=== PATIENT | female | born 1995 | race Caucasian/White ===

== ENCOUNTER 2022-07-23 16:22 | Outpatient (REF) | payer BC, SELFPAY ==
[2022-07-23 17:21] LABS: Influenza A PCR NEGATIVE (Negative); Influenza B PCR NEGATIVE (Negative); Resp Syncy Virus RNA Qual PCR NEGATIVE (Negative); SARS COV2 PCR INHOUSE NEGATIVE (Negative)
== END 2022-07-23 16:23 | disposition home or self-care (01) ==
LOC: HO.LNP 16:22
PROVIDERS: Visit Provider Physician Assistant
DX: Z20.822 Contact with and (suspected) exposure to COVID-19 (principal); B34.9 Viral infection, unspecified
CPT/HCPCS: 0241U

== ENCOUNTER 2023-09-25 22:33 | Emergency (ER) | payer BC, SELFPAY ==
--- NOTE | ~2023-09-25 | XR_ITS ---
EXAMINATION: XR CHEST CLINICAL INFORMATION: Chest pain. COMPARISON: None available. TECHNIQUE: Frontal view of the chest was obtained. FINDINGS: No significant abnormality is noted involving the heart, lungs, mediastinum, bony thorax or soft tissues. XR/XR chest 1V IMPRESSION: Unremarkable examination.
--- NOTE | 2023-09-25 22:34 | ECG_ITS ---
Test Reason : CHEST PAIN Blood Pressure : / mmHG Vent. Rate : 121 BPM Atrial Rate : 121 BPM P-R Int : 128 ms QRS Dur : 074 ms QT Int : 296 ms P-R-T Axes : 061 061 038 degrees QTc Int : 420 ms Sinus tachycardia Nonspecific T wave abnormality Abnormal ECG No previous ECGs available Referred By: Generic ED Physician Electronically Signed By:LEIF WADDELL MD
[2023-09-25 22:44] VITALS: BP 144/88; PULSE 98; RESP 16; TEMP 36.9; O2SAT 100; BMI 30.9
--- NOTE | 2023-09-25 22:59 | MHC.EDTECH ---
PATIENT EKG TAKEN AND WAS READ BY PROVIDER ,BLOOD DRAWN AND SENT TO LAB .
[2023-09-25 23:01] LABS: MANUAL DIFF FLAG NO
[2023-09-25 23:02] LABS: Basophils Absolute Auto 0.1 X10*3/uL (0.0-0.2); Basophils Percent Auto 0.5 % (0-2); Eosinophils Absolute Auto 0.1 X10*3/uL (0.0-0.4); Hematocrit 38.3 % (37.0-47.0); Hemoglobin 13.1 g/dl (12.0-16.0); Imm Gran Abs Auto 0.02 X10*3/uL (0.00-0.03); Imm Gran Pct Auto 0.2 % (0.0-0.4); Lymphocytes Absolute Auto 2.6 X10*3/uL (1.2-4.9); Lymphocytes Percent Auto 25.3 % (20-40); Mean Corpuscular HGB Conc 34.2 g/dl (31.0-35.0); Mean Corpuscular Hemoglobin 28.7 pg (27.0-33.0); Mean Platelet Volume 9.6 fL (9.4-12.3); Monocytes Absolute Auto 0.6 X10*3/uL (0.1-1.2); Monocytes Percent Auto 5.9 % (2-11); Neutrophils Absolute Auto 6.8 x10*3/uL (2.0-8.3); Neutrophils Percent Auto 67.1 % (45-73); Platelet Count 284 X10*3/uL (160-400); Red Blood Count 4.56 X10*6/uL (4.20-5.50); Red Cell Distribution Width 12.1 % (11.0-16.0); White Blood Count 10.1 X10*3/uL (4.8-10.8)
[2023-09-25 23:16] LABS: Alanine Aminotransferase 10 U/L (0-31); Albumin Level 4.1 g/dL (3.5-5.0); Alkaline Phosphatase 52 U/L (39-117); Anion Gap 14 (12-20); Aspartate Amino Transferase 18 U/L (5-31); Bilirubin Total 0.2 mg/dL (0.0-1.0); Blood Urea Nitrogen 8 mg/dL (9-16); Calcium 9.2 mg/dL (8.4-10.2); Carbon Dioxide 23 mmol/L (22-29); Chloride 107 mmol/L (96-108); Creatinine Clr Calc Pharmacy 86.5; Estimated Glomerular Filt Rate > 60; Glucose Random 119 mg/dL (60-115); Potassium 4.1 mmol/L (3.3-5.1); Sodium 140 mmol/L (135-145); Total Protein 6.8 g/dL (6.5-8.0)
[2023-09-25 23:23] LABS: Troponin-I High Sensitivity < 2.7 ng/L (<3.5-17.0)
[2023-09-26] VITALS (7 sets, daily range): BP systolic 117–126; BP diastolic 61–77; PULSE 70–81; RESP 14–20; TEMP 36.7; O2SAT 97
--- NOTE | 2023-09-26 02:51 | ED_ITS ---
HPI - Chest Pain General Chief Complaint: Chest Pain Stated Complaint: Chest pain, heart rate jumping Time Seen by Provider: 09/26/23 02:40 Source: patient Mode of arrival: ambulatory Limitations: no limitations History of Present Illness HPI narrative: Patient otherwise healthy been having episodes of palpitation to 3 times a week for last 2 months getting more frequent now been to Hospital last week when similar episode by the time patient has reached hospital heart rate was normal today while at home and resting patient had palpitation episode checked pulse ox was 150 regular felt slight dizziness tried Valsalva maneuver and had cold water without much relief on arrival patient has sinus rhythm with heart rate of 121 patient's usually get tachycardia while standing but today this happened while she was lying down no anxiety Related Data Home Medications ?Medication ?Instructions ?Recorded ?Confirmed No Known Home Meds 07/23/22 07/23/22 Allergies Allergy/AdvReac Type Severity Reaction Status Date / Time sulfamethoxazole Allergy Severe DIARRHEA Verified 09/25/23 22:48 [From BACTRIM] trimethoprim [From BACTRIM] Allergy Severe DIARRHEA Verified 09/25/23 22:48 Review of Systems 2 Review of Systems: Yes all other systems are reviewed and are negative [facility] Social History Social History Patient Tobacco Use Status: Never used Tobacco Smoked in Last 30 Days: Yes Use of substances other than those prescribed or required for medical reasons: No Advance Directives: No Advance Directives Information Provided: No Do you have a plan to hurt others: No Plan Patient : No Physical Exam 2 Vital Signs: Vital Signs: Last Vital Signs Temp 98.4 F 09/25/23 22:44 Pulse 81 09/26/23 01:42 Resp 20 09/26/23 01:42 BP 126/77 09/26/23 01:42 Pulse Ox 97 09/26/23 01:42 O2 Del Method Room Air 09/26/23 01:42 BMI result Body Mass Index 30.9 Appearance: Alert. Oriented X3. No acute distress. Eyes: No pallor or icterus ENT: Pharynx normal. Oral Mucosa moist Neck: Normal inspection. Neck supple. CVS: Normal heart rate and rhythm. Pulses normal. Respiratory: No respiratory distress. Equal air entry bilateral, no wheezing/rales/rhonchi Abdomen: Soft and nontender. Bowel sounds are present, no mass palpable, no CVA tenderness Skin: Skin warm and dry. Normal skin color. Normal skin turgor. Extremities: No lower extremity edema. No calf tenderness Neuro: Oriented X 3. No motor deficit. Medical Decision Making Medical Decision Making [facility] Narrative: Patient has sinus tachycardia/SVT/POTS syndrome heart rate increased on standing to 110 in the ER without significant hypotension Lab Data 09/25/23 22:56 09/25/23 22:56 Labs: Lab Results 09/25/23 Range/Units 22:56 WBC 10.1 (4.8-10.8) X10*3/uL RBC 4.56 (4.20-5.50) X10*6/uL Hgb 13.1 (12.0-16.0) g/dl Hct 38.3 (37.0-47.0) % MCV 84.0 (80.0-98.0) fL MCH 28.7 (27.0-33.0) pg MCHC 34.2 (31.0-35.0) g/dl RDW 12.1 (11.0-16.0) % Plt Count 284 (160-400) X10*3/uL MPV 9.6 (9.4-12.3) fL Immature Gran % (Auto) 0.2 (0.0-0.4) % Neut % (Auto) 67.1 (45-73) % Lymph % (Auto) 25.3 (20-40) % Calhoun % (Auto) 5.9 (2-11) % Eos % (Auto) 1.0 (0-4) % Baso % (Auto) 0.5 (0-2) % Lymph # (Auto) 2.6 (1.2-4.9) X10*3/uL Calhoun # (Auto) 0.6 (0.1-1.2) X10*3/uL Eos # (Auto) 0.1 (0.0-0.4) X10*3/uL Baso # (Auto) 0.1 (0.0-0.2) X10*3/uL Abs Immat Gran (auto) 0.02 (0.00-0.03) X10*3/uL Absolute Neuts (auto) 6.8 (2.0-8.3) x10*3/uL Absolute Nucleated RBC 0.000 (0.0-0.012) X10*3/uL Nucleated RBC % (auto) 0.0 (0.0-0.2) /100WBC Sodium 140 (135-145) mmol/L Potassium 4.1 (3.3-5.1) mmol/L Chloride 107 (96-108) mmol/L Carbon Dioxide 23 (22-29) mmol/L Anion Gap 14 (12-20) BUN 8 L (9-16) mg/dL Creatinine 0.82 (0.5-1.4) mg/dL Estim Creat Clear Calc 86.5 Estimated GFR > 60 Random Glucose 119 H (60-115) mg/dL Calcium 9.2 (8.4-10.2) mg/dL Total Bilirubin 0.2 (0.0-1.0) mg/dL AST 18 (5-31) U/L ALT 10 (0-31) U/L Alkaline Phosphatase 52 (39-117) U/L Troponin I High Sens < 2.7 (<3.5-17.0) ng/L Total Protein 6.8 (6.5-8.0) g/dL Albumin 4.1 (3.5-5.0) g/dL Discharge Plan Discharge Clinical Impression: Paroxysmal supraventricular tachycardia Prescriptions: No Action No Known Home Meds Print Language: Portuguese
== END 2023-09-26 03:22 | disposition home or self-care (01) ==
PROVIDERS: Emergency Provider Internal Medicine
DX: I47.10 Supraventricular tachycardia, unspecified (principal); G90.A Postural orthostatic tachycardia syndrome [POTS]; R00.2 Palpitations
CPT/HCPCS: 36415; 71045; 80053; 84484; 85025; 93005; 99283; 99285

== ENCOUNTER → 2023-09-25 22:34 | Outpatient (BNV) | payer BC, SELFPAY | PROVIDERS: Emergency Provider Internal Medicine; Visit Provider Internal Medicine Cardiovascular Disease | DX: R07.9 Chest pain, unspecified (principal) | CPT/HCPCS: 93010 ==

== ENCOUNTER 2023-10-07 13:50 | Outpatient (AMB) | payer BC, SELFPAY ==
[2023-10-07 13:57] VITALS: BP 110/80; PULSE 107; BMI 30.9
--- NOTE | 2023-10-07 13:57 | MHC.OFFVIS ---
Vital Signs 10/07/23 13:57 Height 4 ft 11 in Weight 153 lb 0.013 oz BMI 30.9 BP 110/80 Blood Pressure Location Lt brachial Position Sitting Pulse 107 H Pulse Source Pulse Oximeter Intake Visit Reasons: [facility] [place] ED fu req- CP- heart rate jumping Database Architect Required: No Accompanied by: Self / Same As Patient Allergies sulfamethoxazole [From BACTRIM] Allergy (Severe, Verified 09/25/23 22:48) DIARRHEA trimethoprim [From BACTRIM] Allergy (Severe, Verified 09/25/23 22:48) DIARRHEA Medication List - Last Reconciled 10/07/23 by Andrea Kemp MD No Known Home Meds HPI Comments Details: 28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 She has been experiencing palpitations off and on with some dizziness but recently had an episode while laying down when she felt dizzy and fell she going to pass out. She came to the emergency department but was noticed to be in sinus tachycardia. She was thought to have SVT because her heart rate was in 160s at home when she felt dizzy and fell she going to pass out. She was discharged home. She is saying that she has been drinking more water since then. She has been experiencing off and on symptoms for long time from a description. She did not have any rhythm strips/EKG showing SVT. She has no chest pains or shortness of breath. Family history positive for atrial fibrillation in grandfather but he is in his 80s. No other significant disease in the family. [facility] Family History (Updated 10/07/23 @ 14:00 by Marcie Cuevas CMA) Paternal Grandfather New onset a-fib Social History (Updated 10/07/23 @ 14:01 by Marcie Cuevas CMA) Alcohol intake: current Alcohol intake frequency: holidays/special occasions only Alcohol type: beer Patient Tobacco Use Status: Current someday Tobacco user Review of Systems Const Denies chills, Denies fatigue, Denies fever(s), Denies frequent falls, Denies weakness, Denies weight gain and Denies weight loss ENT Reports dizziness Card Reports chest pain, Denies leg edema, Reports lightheadedness, Reports palpitations, Denies dyspnea and Denies dyspnea on exertion Resp Denies cough, Denies dyspnea and Denies dyspnea on exertion GI Denies hematochezia Musc Denies abnormal gait, Denies muscle weakness, Denies numbness, Denies radiating pain into limb and Denies tingling Neuro Denies abnormal gait, Reports dizziness, Denies frequent falls, Denies numbness, Denies tingling and Denies weakness Endo Denies fatigue and Reports palpitations Physical Exam Vital Signs: Last Vital Signs Pulse 107 H 10/07/23 13:57 BP 110/80 10/07/23 13:57 BMI result Body Mass Index 30.9 GENERAL APPEARANCE: in no acute distress, pleasant. NECK: no carotid bruit, no jugular venous distention. SKIN: no suspicious lesions, warm and dry. HEART: no murmurs, regular rate and rhythm. LUNGS: clear to auscultation bilaterally. ABDOMEN: soft, nontender. EXTREMITIES: no edema. PERIPHERAL PULSES: equal. 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 She went to ER and was told that she may have SVT and since then she has been doing vagal maneuvers whenever she gets tachycardia. She is saying that this has been successful in decreasing her heart rate from 160s to 110s. 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 She does not wish to do cardiac event monitor currently. We will arrange echocardiogram to assess hardware any structural heart issues. If it is truly SVT then chances of structural heart disease is low. I have advised her to keep herself well hydrated. We discussed about beta-esteban but currently we have decided to monitor closely. She will see us back in 6 months. If she had recurrent episodes and she will call us. Thank you for allowing me to participate in the care of your patient. Please feel free to contact me if you have any questions. Orders: Orders CA echo transthoracic complete Today R00.2 - Palpitations Coding Level of Care Code New Pt Level 4 (89680) Diagnoses Palpitations R00.2
== END 2023-10-07 14:45 | disposition home or self-care (01) ==
PROVIDERS: Visit Provider Internal Medicine Cardiovascular Disease
DX: R00.2 Palpitations (principal)
CPT/HCPCS: 99204

== ENCOUNTER → 2023-10-07 13:50 | Outpatient (BNVA) | payer BC, SELFPAY | PROVIDERS: Visit Provider Internal Medicine Cardiovascular Disease ==

== ENCOUNTER → 2023-10-28 10:49 | Outpatient (REF) | payer BC, SELFPAY ==
--- NOTE | 2023-10-28 10:51 | CA_ITS ---
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 The visually estimated ejection fraction is between 60-65%. Diastolic function is normal for age. - Normal right ventricular cavity size and systolic function. - The left atrium is normal in size. The right atrium is normal in size. Findings Left Ventricle Normal left ventricular size, thickness, systolic function, and wall motion. The visually estimated ejection fraction is between 60-65%. Diastolic function is normal for age. Right Ventricle Normal right ventricular cavity size and systolic function. Atria The left atrium is normal in size. The right atrium is normal in size. Aortic Valve Normal aortic valve structure and function. There is no aortic valve stenosis. There is no aortic valve regurgitation. Mitral Valve The mitral valve appears normal. There is no mitral valve regurgitation. There is no mitral valve stenosis. Pulmonic Valve The pulmonic valve is normal. There is no pulmonic valve regurgitation. Tricuspid Valve Normal tricuspid valve structure. There is trace tricuspid valve regurgitation. Tricuspid regurgitation envelope is inadequate for calculation of right ventricular systolic pressure. Normal right atrial pressure. Great Vessels All visible segments of the aorta are normal in size. The visualized portions of the pulmonary artery and branches are normal. Venous The inferior vena cava is normal in size and collapses greater than 50% with inspiration. Pericardium/Pleural There is no evidence of pericardial effusion. Prior Study Comparison No prior study available for comparison. Measurements 2D Linear Measurements IVSd: 0.73 0.6-0.9/0.6-1.0 cm LVIDd: 4.38 3.9-5.3/4.2-5.9 cm LVIDd Index: 2.69 2.4-3.2/2.2-3.1 cm/m2 LVIDs: 3.12 2.0-3.6 cm LVPWd: 0.87 0.7-1.1 cm LA Diam: 2.90 2.7-3.8/3.0-4.0 cm LAIDs Index: 1.78 1.5-2.3 cm/m2 LV Mass: 135.12 67-162/88-224 g LV Mass Index: 82.90 43-95/49-115 g/m2 LVOT Diam: 1.90 3.0+(-)1.3 cm 2D Systolic Function EF 4C: 65.70 >55% EF 2C: 61.70 >55% EF BiP: 62.70 >55% Mitral Valve MV Pk E: 0.77 MV PK A: 0.68 MV Decel Time: 201.00 E/A: 1.10 E'Lateral: 12.50 E'Medial: 9.36 E/E' Med: 8.20 E/E' Lat: 6.20 PHT: 59.00 MVA PHT: 3.73 Decel Nelson: 3.84 Aortic Valve AoV Pk Paul: 1.51 AoV Mn Paul: 0.95 AoV VTI: 0.26 AoV Pk Grad: 9.00 Aov Mn Grad: 4.00 RICARDO Cont.VTI: 2.29 LVOT LVOT Pk Paul: 1.09 LVOT Mn Paul: 0.77 LVOT VTI: 0.21 LVOT Pk Grad: 5.00 LVOT Mn Grad: 3.00 LVOT Diam: 1.90 LVOT Area: 2.84 Diastolic Function MV Pk E: 0.77 MV Pk A: 0.68 E/A: 1.10 E'Medial: 9.36 E/E' Med: 8.20 E' Laterial: 12.50 E/E' Lat: 6.20 Right Ventricle TAPSE (mm): 22.00 TVS' Paul: 12.60 Tricuspid Valve RA Press: 3.00 Great Vessels Aorta Sinus of Valsalva: 2.74 2.0-3.[address] Ridge: 1.94 1.7-3.4 cm Ao Asc: 2.30 2.1-3.4 cm Updated in Other Vendor System with Status of Final Andrea Kemp MD electronically signed on 10/29/2023 9:58:42 PM with status of Final
== END ==
LOC: HO.CARD 10:49
PROVIDERS: Visit Provider Internal Medicine Cardiovascular Disease
DX: R00.2 Palpitations (principal)
CPT/HCPCS: 93306

== ENCOUNTER → 2023-10-28 10:51 | Outpatient (BNV) | payer BC, SELFPAY | PROVIDERS: Visit Provider Internal Medicine Cardiovascular Disease | DX: I36.1 Nonrheumatic tricuspid (valve) insufficiency (principal); R00.2 Palpitations | CPT/HCPCS: 93306 ==